=== PATIENT | female | born 1975 | race Caucasian/White ===

== ENCOUNTER 2020-12-30 07:34 | Emergency (ER) | payer OTHER ==
[2020-12-30] MEDS ORDERED: IBUPROFEN600 MG PO (11:27)
== END 2020-12-30 11:39 | disposition home or self-care (01) ==
LOC: ER1 07:34
DX: S70.01XA Contusion of right hip, initial encounter (principal); S40.021A Contusion of right upper arm, initial encounter; W01.0XXA Fall on same level from slipping, tripping and stumbling without subsequent striking against object, initial encounter; Z88.5 Allergy status to narcotic agent
CPT/HCPCS: 70450; 72125; 72128; 73060; 73502; 84703; 96372; 99284; J1885

== ENCOUNTER 2021-11-09 12:36 | Emergency (ER) | payer OTHER ==
[~2021-11-09 12:36] MED LIST: IBUPROFEN600 MG PO
[2021-11-09] MEDS ORDERED: BACITRACIN28.4 GM TP (14:09)
== END 2021-11-09 16:30 | disposition home or self-care (01) ==
LOC: ER1 12:36
DX: T24.201A Burn of second degree of unspecified site of right lower limb, except ankle and foot, initial encounter (principal); T24.202A Burn of second degree of unspecified site of left lower limb, except ankle and foot, initial encounter; T22.20XA Burn of second degree of shoulder and upper limb, except wrist and hand, unspecified site, initial encounter; T24.102A Burn of first degree of unspecified site of left lower limb, except ankle and foot, initial encounter; T24.101A Burn of first degree of unspecified site of right lower limb, except ankle and foot, initial encounter; T22.10XA Burn of first degree of shoulder and upper limb, except wrist and hand, unspecified site, initial encounter; Z88.5 Allergy status to narcotic agent; X58.XXXA Exposure to other specified factors, initial encounter
CPT/HCPCS: 99283

== ENCOUNTER → 2021-11-17 | Outpatient (CLI) | payer OTHER ==
[~2021-11-17] MED LIST changes: +BACITRACIN28.4 GM TP
== END ==
LOC: WCC 07:35
DX: T21.34XA Burn of third degree of lower back, initial encounter (principal); T21.35XA Burn of third degree of buttock, initial encounter; E11.9 Type 2 diabetes mellitus without complications; E11.628 Type 2 diabetes mellitus with other skin complications; T24.221A Burn of second degree of right knee, initial encounter; T24.222A Burn of second degree of left knee, initial encounter; T22.251A Burn of second degree of right shoulder, initial encounter; T21.25XA Burn of second degree of buttock, initial encounter; E66.01 Morbid (severe) obesity due to excess calories; Z68.39 Body mass index [BMI] 39.0-39.9, adult; Z88.5 Allergy status to narcotic agent; Z87.891 Personal history of nicotine dependence; Z88.8 Allergy status to other drugs, medicaments and biological substances

== ENCOUNTER → 2021-11-24 | Outpatient (CLI) | payer OTHER | LOC: WCC 08:48 | DX: E11.628 Type 2 diabetes mellitus with other skin complications (principal); T21.35XA Burn of third degree of buttock, initial encounter; T21.34XA Burn of third degree of lower back, initial encounter; T24.202A Burn of second degree of unspecified site of left lower limb, except ankle and foot, initial encounter; T24.221A Burn of second degree of right knee, initial encounter; E66.01 Morbid (severe) obesity due to excess calories; Z68.39 Body mass index [BMI] 39.0-39.9, adult; Z88.5 Allergy status to narcotic agent; Z88.8 Allergy status to other drugs, medicaments and biological substances; X08.8XXA Exposure to other specified smoke, fire and flames, initial encounter ==

== ENCOUNTER → 2021-11-26 | Outpatient (CLI) | payer OTHER ==
[2021-11-26 10:20] LABS: BUN/CREATININE RATIO 25 (0-10)
[2021-11-26 10:24] LABS: RED BLOOD COUNT 3.68 M/UL (4.00-5.10); WHITE BLOOD COUNT 6.4 K/UL (4.5-11.0)
[2021-11-27 08:16] LABS: VITAMIN D, 25-HYDROXY 22.8 ng/mL (30.0-100.0)
[2021-11-27 11:16] LABS: HCV AB 0.2 (0.0-0.9)
== END ==
LOC: LAB 09:03
PROVIDERS: Nurse Practitioner Family
DX: I10 Essential (primary) hypertension (principal); E53.8 Deficiency of other specified B group vitamins; R79.89 Other specified abnormal findings of blood chemistry; F19.10 Other psychoactive substance abuse, uncomplicated
CPT/HCPCS: 36415; 80053; 80061; 82607; 83036; 84439; 84443; 85025; 86803

== ENCOUNTER → 2021-12-02 | Outpatient (CLI) | payer OTHER | LOC: WCC 07:29 | DX: E11.628 Type 2 diabetes mellitus with other skin complications (principal); T21.35XA Burn of third degree of buttock, initial encounter; T21.34XA Burn of third degree of lower back, initial encounter; T24.221A Burn of second degree of right knee, initial encounter; T24.222A Burn of second degree of left knee, initial encounter; T24.232A Burn of second degree of left lower leg, initial encounter; T21.20XA Burn of second degree of trunk, unspecified site, initial encounter; T22.251A Burn of second degree of right shoulder, initial encounter; T21.25XA Burn of second degree of buttock, initial encounter; E66.01 Morbid (severe) obesity due to excess calories; Z68.39 Body mass index [BMI] 39.0-39.9, adult; Z88.5 Allergy status to narcotic agent; Z88.8 Allergy status to other drugs, medicaments and biological substances ==

== ENCOUNTER → 2021-12-14 | Outpatient (CLI) | payer OTHER | LOC: WCC 07:41 | DX: E11.628 Type 2 diabetes mellitus with other skin complications (principal); E66.01 Morbid (severe) obesity due to excess calories; T24.221D Burn of second degree of right knee, subsequent encounter; T24.222D Burn of second degree of left knee, subsequent encounter; T24.232D Burn of second degree of left lower leg, subsequent encounter; T21.20XD Burn of second degree of trunk, unspecified site, subsequent encounter; T22.251D Burn of second degree of right shoulder, subsequent encounter; T21.25XD Burn of second degree of buttock, subsequent encounter | CPT/HCPCS: G0463 ==